=== PATIENT | male | born 1985 | race Caucasian/White ===

== ENCOUNTER 2019-10-23 23:11 | Emergency (ER) | payer SELFPAY ==
[~2019-10-23] VITALS: Ht 177.8 cm; Wt 90.9 kg
[2019-10-23] MEDS ORDERED: NS IV 1000 ML 1,000 ML IV SCH (23:29)
[2019-10-23] MEDS ORDERED: QUET50TA PO (23:30)
[2019-10-23] MEDS ORDERED: fentaNYL INJECTION 100 MCG/2 ML AMP IVP ONE (23:30)
[2019-10-23] MEDS ORDERED: BUPR-42 PO (23:30)
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
[2019-10-23 23:38] LABS: HEMOGLOBIN 14.9 G/DL (13.3-17.7); MEAN PLATELET VOLUME 11.5 FL (7.4-10.4); WHITE BLOOD COUNT 10.6 10^3/uL (4.3-11.0)
[2019-10-23 23:43] LABS: ALBUMIN 4.6 GM/DL (3.2-4.5); CHLORIDE 105 MMOL/L (98-107); POTASSIUM 3.8 MMOL/L (3.6-5.0); SODIUM 138 MMOL/L (135-145)
[2019-10-23 23:44] LABS: CALCIUM 9.5 MG/DL (8.5-10.1)
[2019-10-23 23:46] LABS: GLUCOSE 147 MG/DL (70-105); TOTAL PROTEIN 8.5 GM/DL (6.4-8.2)
[2019-10-23 23:47] LABS: BILIRUBIN,TOTAL 1.2 MG/DL (0.1-1.0); CARBON DIOXIDE 20 MMOL/L (21-32)
[2019-10-23 23:49] LABS: ALKALINE PHOSPHATASE 78 U/L (40-136)
[2019-10-23 23:50] LABS: CREATININE SERUM 1.43 MG/DL (0.60-1.30); GFR ESTIMATED 56
[2019-10-23 23:51] LABS: BILIRUBIN,DIRECT 0.5 MG/DL (0.0-0.3); BILIRUBIN,INDIRECT 0.7 MG/DL; BUN/CREATININE RATIO 18
[2019-10-23 23:52] LABS: ALANINE AMINOTRANSFERASE 102 U/L (0-55)
[2019-10-24] MEDS ORDERED: ceFAZolin INJECTION 1,000 MG in WATER (STERILE) FOR INJECTION 10 ML IV ONE (00:30)
[2019-10-24] MEDS ORDERED: TETANUS,DIPTH,PERTUSS P/F (BOOSTRIX) 0.5 ML VIAL IM ONE (00:30)
[2019-10-24] MEDS ORDERED: LACTATED RINGERS 1,000 ML IV ONE (00:38)
[2019-10-24] MEDS ORDERED: fentaNYL INJECTION 100 MCG/2 ML AMP IVP ONE (00:45)
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
[2019-10-24 01:29] VITALS: BP 114/74
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
== END 2019-10-24 01:29 | disposition short-term general hospital (02) ==
LOC: ER 23:14
DX: S82.201B Unspecified fracture of shaft of right tibia, initial encounter for open fracture type I or II (principal); S00.01XA Abrasion of scalp, initial encounter; F17.210 Nicotine dependence, cigarettes, uncomplicated; R40.2142 Coma scale, eyes open, spontaneous, at arrival to emergency department; R40.2252 Coma scale, best verbal response, oriented, at arrival to emergency department; R40.2362 Coma scale, best motor response, obeys commands, at arrival to emergency department; Z23 Encounter for immunization; X95.9XXA Assault by unspecified firearm discharge, initial encounter
CPT/HCPCS: 36415; 70450; 71045; 72125; 72170; 73552; 73562; 73590; 80048; 80076; 80320; 85027; 86850; 86900; 86901; 90715; 93041